=== PATIENT | female | born 1940 | race Asian ===

== ENCOUNTER 2020-02-12 13:58 | Inpatient (IN) | payer OTHER ==
[2020-02-12 15:33] VITALS: BMI 18.8
[2020-02-12 15:33] LABS: HEMOGLOBIN 9.2 GM/dL (10.7-15.3); MCH 34.1 pg (25.7-33.7); MCHC 32.8 g/dl (32.0-36.0); MEAN PLT VOLUME 9.8 fl (7.5-11.1); PLATELET COUNT 45 K/MM3 (134-434); RBC 2.69 M/mm3 (3.60-5.2); RDW 25.4 % (11.6-15.6)
[2020-02-12 15:41] LABS: CORRECTED WBC 0.29 K/mm3
[2020-02-12 15:44] LABS: WHITE BLOOD COUNT 1.1 K/mm3 (4.0-10.0)
[2020-02-12 16:19] LABS: CHLORIDE 96 mmol/L (98-107); POTASSIUM 3.1 mmol/L (3.5-5.1); SODIUM 132 mmol/L (136-145)
[2020-02-12 16:20] LABS: CALCIUM 8.5 mg/dL (8.5-10.1)
[2020-02-12 16:22] LABS: ALBUMIN 1.9 g/dl (3.4-5.0); ANION GAP 10 MMOL/L (8-16); BLOOD UREA NITROGEN 65.4 mg/dL (7-18); CO2 25 mmol/L (21-32); GLUCOSE,RANDOM 73 mg/dL (74-106)
[2020-02-12 16:23] LABS: EPI CELLS 20 /uL (0-25.1); HYALINE CASTS 12 /uL (0-3.1); URINE APPEARANCE CLEAR; URINE BACTERIA 3 /uL (0-1359); URINE BILIRUBIN NEGATIVE (NEGATIVE); URINE COLOR YELLOW; URINE GLUCOSE (UA) NEGATIVE (NEGATIVE); URINE KETONE NEGATIVE (NEGATIVE); URINE LEUK ESTERASE NEGATIVE (NEGATIVE); URINE NITRITE NEGATIVE (NEGATIVE); URINE PROTEIN 1+ (NEGATIVE); URINE UROBILINOGEN 0.2 mg/dL (0.2-1.0); URINE WBC 6 /uL (0-25.8)
[2020-02-12 16:25] LABS: SGOT/AST 44 U/L (15-37); SGPT/ALT 41 U/L (13-61)
[2020-02-12 16:26] LABS: BILIRUBIN,TOTAL 0.8 mg/dL (0.2-1)
[2020-02-12 16:28] LABS: ALK PHOS 69 U/L (45-117)
[2020-02-12 16:30] LABS: N-TERMINAL BNP 28378.2 pg/ml (5-450)
[2020-02-12] MEDS ORDERED: LACTATED RINGERS SOLUTION 1000 ML INFUS.BAG IV ONE ×2 (16:43→18:27)
[2020-02-12] MEDS ORDERED: POTASSIUM CHLORIDE ORAL LIQUID 20 MEQ/15 ML PO ONE (16:45)
[2020-02-12 16:59] LABS: URINE RBC 24.4 /uL (0-23.9)
[2020-02-12] MEDS ORDERED: LACTATED RINGERS SOLUTION 1,000 ML/1,000 ML INFUS.BAG IV SCH (17:00)
[2020-02-12 17:36] LABS: ANISOCYTOSIS 3+; MACROCYTOSIS 3+; PLATELET ESTIMATE DECREASED; TARGET CELLS 1+
[2020-02-12 17:52] LABS: RETICULOCYTES 4.95 % (0.5-1.5)
[2020-02-12] MEDS ORDERED: SODIUM CHLORIDE IVPB STA (17:56)
[2020-02-12] MEDS ORDERED: FOLIC ACID IVPB STA (17:56)
[2020-02-12] MEDS ORDERED: LEUCOVORIN CALCIUM 25 MG PO ONE (18:00)
[2020-02-12] MEDS ORDERED: FOLIC ACID 5 MG/1 ML IVPB ONE (18:05)
[2020-02-12 18:10] LABS: MAGNESIUM 1.9 mg/dL (1.8-2.4)
[2020-02-12] MEDS ORDERED: VANCOMYCIN 1,000 MG in DEXTROSE 5%-WATER - 250 ML IVPB ONE (18:13)
[2020-02-12] MEDS ORDERED: AZTREONAM 1 GM in DEXTROSE 5%-WATER - 50 ML IVPB ONE (18:13)
[2020-02-12] MEDS ORDERED: VANCOMYCIN 1 GM in D5W (PRE-DOCKED) 1,000 MG/250 ML IVPB ONE (18:16)
[2020-02-12 18:33] LABS: ERYTHROCYTE SEDIMENTATION RATE 71 mm/hr (0-30)
[2020-02-12] MEDS ORDERED: AZTREONAM 1 GM VIAL (RESTRICTED TO ID) ONE (18:48)
[2020-02-12] MEDS ORDERED: VANCOMYCIN 1 GRAM (PRE-DOCKED) 1,000 MG/250 ML BAG IVPB ONE (18:49)
[2020-02-12 19:33] LABS: INR 1.51 (0.83-1.09)
[2020-02-12 19:51] LABS: ALBUMIN 1.8 g/dl (3.4-5.0)
[2020-02-12 19:53] LABS: BILIRUBIN,DIRECT 0.5 mg/dL (0.0-0.2)
[2020-02-12 19:55] LABS: BILIRUBIN,TOTAL 0.7 mg/dL (0.2-1)
[2020-02-12 19:56] LABS: TOT PROT 4.4 g/dl (6.4-8.2)
[2020-02-12 20:01] LABS: ARTERIAL BLOOD GAS BASE EXCESS -3.2 mmol/L (-2-2); ARTERIAL BLOOD GAS PO2 68.2 mmHg (80-100); ARTERIAL BLOOD GAS pH 7.208 (7.350-7.450)
[2020-02-12] MEDS ORDERED: RAPID SEQUENCE INTUBATION KIT NR ONE (20:18)
[2020-02-12] MEDS ORDERED: ETOMIDATE 20 MG/10 ML AMPUL IVPUSH ONE (20:46)
[2020-02-12] MEDS ORDERED: ROCURONIUM BROMIDE 50 MG/5 ML VIAL IV ONE (20:46)
[2020-02-12] MEDS ORDERED: PHENYLEPHRINE HCL 10 MG/1 ML SINGLE DOSE VIAL IVPB ONE ×2 (20:48→22:09)
[2020-02-12] MEDS ORDERED: PANTOPRAZOLE SODIUM 40 MG/100 ML BAG IVPB ONE (20:53)
[2020-02-12] MEDS ORDERED: PANTOPRAZOLE SODIUM 40 MG VIAL IVPUSH ONE (20:54)
[2020-02-12] MEDS ORDERED: NOREPINEPHRINE D5W PREMIX 16,000 MCG/500 ML BAG IVPB SCH (21:00)
[2020-02-12] MEDS ORDERED: PHENYLEPHRINE HCL 10 MG/1 ML SINGLE DOSE VIAL ONE (21:15)
[2020-02-12] MEDS ORDERED: DEXMEDETOMIDINE HCL 200 MCG/2 ML IVPB ONE ×2 (21:15)
[2020-02-12] MEDS ORDERED: DEXMEDETOMIDINE IN 0.9 % NACL 400 MCG/100 ML VIAL IVPB SCH (21:15)
[2020-02-12] MEDS ORDERED: MUPIROCIN 2% TOPICAL OINTMENT FOR DECOLONIZATION NS SCH (22:00)
[2020-02-12] MEDS ORDERED: CHLORHEXIDINE GLUCONATE 4% CLEANSER FOR DECOLONIZATION TP SCH (22:00)
[2020-02-12] MEDS ORDERED: AMIODARONE HCL 150 MG/3 ML VIAL ONE (22:40)
[2020-02-12] MEDS ORDERED: VASOPRESSIN 20 UNITS/ML VIAL IV ONE (23:38)
[2020-02-12] MEDS ORDERED: AMIODARONE HCL 200 MG TABLET PO ONE (23:42)
[2020-02-12 23:47] LABS: EOS % 9.4 % (0-4.5); HEMOGLOBIN 7.4 GM/dL (10.7-15.3); LYMPH % 87.2 % (8-40); MCH 34.4 pg (25.7-33.7); MEAN CELL VOLUME 107.5 fl (80-96); MONO % 1.3 % (3.8-10.2); NEUT % 2.1 % (42.8-82.8); RBC 2.14 M/mm3 (3.60-5.2); RDW 24.9 % (11.6-15.6)
[2020-02-12 23:49] LABS: PLATELET COUNT 8 K/MM3 (134-434); WHITE BLOOD COUNT 0.2 K/mm3 (4.0-10.0)
[2020-02-12 23:53] LABS: INR 1.71 (0.83-1.09); PROTHROMBIN TIME (PATIENT) 20.4 SEC (9.7-13.0)
[2020-02-12 23:56] LABS: ACTIVATED PTT 45.9 SECONDS (25.2-36.5)
[2020-02-13] MEDS ORDERED: AZTREONAM 1 GM in DEXTROSE 5%-WATER - 50 ML IVPB ONE (00:13)
[2020-02-13] MEDS ORDERED: PHENYLEPHRINE HCL 10,000 MCG in DEXTROSE 5%-WATER - 499 ML IV SCH (00:15)
[2020-02-13] MEDS ORDERED: VASOPRESSIN 40 UNITS in SODIUM CHLORIDE 98 ML IVPB SCH (00:15)
[2020-02-13] MEDS ORDERED: PHENYLEPHRINE NS PREMIX 50,000 MCG/500 ML BAG CVP SCH (00:15)
[2020-02-13] MEDS ORDERED: PHENYLEPHRINE HCL 10 MG/1 ML SINGLE DOSE VIAL ONE (00:16)
[2020-02-13 00:29] LABS: HIV INTERPRETATION NEGATIVE (NEGATIVE)
[2020-02-13] MEDS ORDERED: SODIUM CHLORIDE 1,000 ML IV SCH (00:30)
[2020-02-13 01:07] LABS: CHLORIDE 95 mmol/L (98-107); POTASSIUM 3.1 mmol/L (3.5-5.1); SODIUM 132 mmol/L (136-145)
[2020-02-13 01:10] LABS: ALBUMIN 1.3 g/dl (3.4-5.0); ANION GAP 16 MMOL/L (8-16); BLOOD UREA NITROGEN 68.8 mg/dL (7-18); CALCIUM 9.4 mg/dL (8.5-10.1); CO2 21 mmol/L (21-32); GLUCOSE,RANDOM 354 mg/dL (74-106); MAGNESIUM 4.3 mg/dL (1.8-2.4)
[2020-02-13 01:14] LABS: CREATININE 2.2 mg/dL (0.55-1.3); SGOT/AST 251 U/L (15-37); SGPT/ALT 89 U/L (13-61)
[2020-02-13 01:15] LABS: BILIRUBIN,TOTAL 0.8 mg/dL (0.2-1); PHOSPHOROUS 8.1 mg/dL (2.5-4.9); TOT PROT 3.4 g/dl (6.4-8.2)
[2020-02-13] MEDS ORDERED: DOPAMINE HCL 400,000 MCG in SODIUM CHLORIDE 240 ML IV SCH (01:15)
[2020-02-13 01:17] LABS: ALK PHOS 57 U/L (45-117)
[2020-02-13 01:20] LABS: ANISOCYTOSIS 2+; CORRECTED WBC 0.08 K/mm3; MACROCYTOSIS 2+; PLATELET ESTIMATE DECREASED
[2020-02-13] MEDS ORDERED: AZTREONAM 1 GM in DEXTROSE 5%-WATER - 50 ML IVPB SCH ×2 (02:00→06:00)
[2020-02-13] MEDS ORDERED: MEROPENEM 1 GM in DEXTROSE 5%-WATER 100 ML IVPB SCH (02:00)
[2020-02-13] MEDS ORDERED: HYDROCORTISONE SOD SUCCINATE 100 MG/2 ML VIAL IVPB SCH (03:00)
[2020-02-13 03:28] VITALS: BP 57/27; PULSE 76; TEMP 99
[2020-02-13] MEDS ORDERED: FOLIC ACID 5 MG/1 ML IVPB ONE (18:00)
== END 2020-02-13 02:12 | disposition expired | DRG 871 ==
LOC: JER 13:58 → JERBED 18:24 → JICU 23:23
PROVIDERS: ADMIT Internal Medicine; ATTEND Internal Medicine
PROC: 5A1935Z Respiratory Ventilation, Less than 24 Consecutive Hours (ICD-10-PCS; principal; 2020-02-12)
PROC: 0BH17EZ Insertion of Endotracheal Airway into Trachea, Via Natural or Artificial Opening (ICD-10-PCS; 2020-02-12)
PROC: 5A12012 Performance of Cardiac Output, Single, Manual (ICD-10-PCS; 2020-02-12)
PROC: 02HV33Z Insertion of Infusion Device into Superior Vena Cava, Percutaneous Approach (ICD-10-PCS; 2020-02-12)
DX: A41.9 Sepsis, unspecified organism (principal); J18.9 Pneumonia, unspecified organism; J96.00 Acute respiratory failure, unspecified whether with hypoxia or hypercapnia; R65.21 Severe sepsis with septic shock; E43 Unspecified severe protein-calorie malnutrition; N17.9 Acute kidney failure, unspecified; D61.818 Other pancytopenia; E87.1 Hypo-osmolality and hyponatremia; R64 Cachexia; Z68.1 Body mass index [BMI] 19.9 or less, adult; I95.9 Hypotension, unspecified; I10 Essential (primary) hypertension; R00.1 Bradycardia, unspecified; I49.01 Ventricular fibrillation; K12.30 Oral mucositis (ulcerative), unspecified; E16.2 Hypoglycemia, unspecified; D69.6 Thrombocytopenia, unspecified
CPT/HCPCS: 36415; 36600; 70450-TC; 71045-TC-FY; 71250-TC; 72125-TC; 74176-TC; 80053; 80076; 81003; 82140; 82550; 82746; 82803; 82962; 83605; 83735; 83880; 84100; 84484; 85025; 85045; 85610; 85651; 85730; 86140; 87040; 87070; 87086; 87186; 87252; 87389; 93005; 93010; 94002; 99285-25; C9803; U0003